=== PATIENT | female | born 1985 | race Caucasian/White ===

== ENCOUNTER 2017-04-27 16:23 | Emergency (ER) | payer MEDICARE, MEDICAID ==
--- NOTE | ~2017-04-27 | ER ---
PATIENT'S NAME: VASYL [facility] AGE: 31 Y [address] ROOM: [place] [address] LOCATION: [facility] ADMIT DATE: 04/27/2017 ER/Outpatient Report DISCHARGE DATE: 04/27/2017 FAMILY PHYSICIAN: PHYSICIAN, NO ATTENDING PHYSICIAN: Osmin Spann CHIEF COMPLAINT: Left flank pain and abdominal pain. TIME OF PATIENT ARRIVAL: 1623 hours. TIME OF PATIENT EVALUATION: 1635 hours. HISTORY OF PRESENT ILLNESS: This is a 31-year-old female, who presents to the ER. She states she has had a couple-day history of some left flank/abdominal pain. The patient states she has been in [facility] and is going to be heading back to [place]. She states she does have a history of this in the past and she states the last time she had pain like this, she found out that her kidney was not working and she ultimately had to have her kidney removed. She has not been running any fevers. She has had no nausea or vomiting. No diarrhea. Her last bowel movement was yesterday and was normal. She has had no troubles with urination. No abnormal vaginal discharge. The patient states that she was able to void this morning, but she states that she is having difficulty voiding since this morning. The patient denies any other problems at this time. ALLERGIES: PLEASE SEE MEDICATION LIST NURSE'S NOTES. MEDICATIONS: Please see medication list nurse's notes. PAST MEDICAL HISTORY: Asthma. PAST SURGICAL HISTORY: 1. Kidney removal on the left side. 2. Appendectomy. 3. Laparoscopic abdominal surgery and a hysterectomy. SOCIAL HISTORY: She smokes a pack of cigarettes a day for the last 10 years. Denies any drug PATIENT'S NAME: VASYL [facility] AGE: 31 Y [address] ROOM: [place], [place] [address] LOCATION: [facility] ADMIT DATE: 04/27/2017 ER/Outpatient Report DISCHARGE DATE: 04/27/2017 FAMILY PHYSICIAN: PHYSICIAN, NO ATTENDING PHYSICIAN: Osmin Spann or alcohol use. REVIEW OF SYSTEMS: All systems reviewed were negative with the exception of those discussed in the HPI. PHYSICAL EXAMINATION: VITAL SIGNS: Height 5 feet 8 inches stated, weight 103.8 kg taken, blood pressure is 127/86, pulse 75, respirations 18, temperature 96.9 degrees tympanically, and saturations 98% on room air. Sarai Coma Score is 15. GENERAL: Alert, obese female, in mild distress. HEENT: Head normocephalic. Eyes; pupils are equal and reactive to light. She does display moist mucous membranes. LUNGS: Clear to auscultation bilaterally. No wheezes or crackles. HEART: Regular rate and rhythm. ABDOMEN: Soft. She has some mild tenderness in her left lower abdomen with palpation. She also has some tenderness in her right upper quadrant with palpation. No guarding or rebound tenderness. She has good bowel sounds throughout. No masses were palpated. EXTREMITIES: No clubbing, cyanosis, or edema. She does have full range of motion of all limbs. LABORATORY DATA: CBC: White count is 10.2, hemoglobin is 13.1, platelets 198. CMS was unremarkable. Amylase is 34 and lipase is 102. She does have UA micro, white blood cells 2 to 5, red blood cells 10 to 20, epithelial 20 to 50. Nitrites were negative. 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 Otherwise, no significant findings were seen on the stone protocol CAT scan. IMPRESSION: Left lower quadrant abdominal pain, improved. ASSESSMENT AND PLAN: The patient did rest comfortably here during her entire stay. Her abdomen remained nonsurgical while she was here. We did start an IV and did give her 2 mg of morphine and 4 mg of Zofran and some IV fluids while she was here. We will dismiss her to home with prescription for Faith and Zofran to use as directed. She needs to monitor symptoms closely, continue to push fluids, and I would like her to follow up with her primary care physician when she returns home. The patient understands and agrees with care. PATIENT'S NAME: VASYL [facility] AGE: 31 Y [address] ROOM: [place] [address] LOCATION: [facility] ADMIT DATE: 04/27/2017 ER/Outpatient Report DISCHARGE DATE: 04/27/2017 FAMILY PHYSICIAN: PHYSICIAN, NO ATTENDING PHYSICIAN: Osmin Spann PA-C FOR OSMIN SPANN DO ACJ/modl /[id number] d: 04/28/17 0133 t: 05/01/17 2113, OUTPATIENT REPORT
[2017-04-27 16:57] LABS: BILIRUBIN URINE NEGATIVE (NEGATIVE); BLOOD URINE 150 /UL (NEGATIVE); COLOR URINE YELLOW (YELLOW); GLUCOSE URINE NEGATIVE (NEGATIVE); KETONE URINE NEGATIVE (NEGATIVE); LEUKOCYTES URINE 25 /UL (NEGATIVE); NITRITE URINE NEGATIVE (NEGATIVE); PROTEIN URINE 500 mg/dL (NEGATIVE); SPEC GRAVITY URINE 1.025 (1.003-1.035); TURBIDITY URINE 2+ (CLEAR); UROBILINOGEN URINE 4 mg/dL (NORMAL)
[2017-04-27 17:04] LABS: AMORPHOUS URINE 1+ (NEGATIVE); BACTERIA URINE FEW (NEGATIVE); EPITHELIAL URINE 20-50 #/HPF (NEGATIVE); MUCUS URINE 2+ (NEGATIVE)
[2017-04-27 17:18] LABS: BASOPHIL # 0.1 K/uL (0.0-0.2); BASOPHIL % 0.5 %; EOSINOPHIL # 0.3 K/uL (0.0-0.5); EOSINOPHIL % 2.9 %; HEMATOCRIT 37.2 % (33.0-46.0); HEMOGLOBIN 13.1 g/dL (11.0-15.0); IMMATURE GRANULOCYTE % 0.2 %; LYMPHOCYTE % 39.3 %; MCH 30.7 pg (27.0-34.0); MCHC 35.2 gm/dL (32.0-36.5); MCV 87.1 fl (83.0-98.0); MONOCYTE # 0.5 K/uL (0.0-1.0); MONOCYTE % 4.8 %; NEUTROPHIL # (ANC) 5.3 K/uL (1.8-7.8); NEUTROPHIL % 52.3 %; NRBC % 0 /100WBC (0-0.00); RBC 4.27 M/uL (3.50-5.50); RDW-CV 12.7 % (11.9-14.6); WBC 10.2 K/uL (4.0-11.0)
[2017-04-27 17:31] LABS: ALBUMIN 3.5 gm/dL (3.5-5.0); ANION GAP 9.1 (10.0-19.0); CALCIUM 8.5 mg/dL (8.5-10.5); CREATININE 0.6 mg/dL (0.5-1.1); POTASSIUM 4.1 mMol/L (3.7-5.1); TOTAL BILIRUBIN 0.5 mg/dL (0.0-1.5); TOTAL PROTEIN 6.6 g/dL (6.0-8.4)
[2017-04-27 17:53] LABS: PLATELET COUNT 198 K/uL (150-450)
== END 2017-04-27 18:48 | disposition disaster alternative care site (69) ==
LOC: GMED 16:23
PROVIDERS: Physician Assistant Medical
DX: R10.32 Left lower quadrant pain (principal); J45.909 Unspecified asthma, uncomplicated; F17.210 Nicotine dependence, cigarettes, uncomplicated; Z90.710 Acquired absence of both cervix and uterus; Z90.5 Acquired absence of kidney; Z90.49 Acquired absence of other specified parts of digestive tract; Z79.899 Other long term (current) drug therapy; Z88.6 Allergy status to analgesic agent
CPT/HCPCS: J2270; J2405; J7030